=== PATIENT | female | born 1985 | race Caucasian/White ===

== ENCOUNTER → 2018-02-20 11:24 | Outpatient (CLI) | payer OTHER, SELFPAY ==
[2018-02-20 12:45] LABS: Estradiol 147.7 pg/mL
[2018-02-21 09:18] LABS: Progesterone Level 1.63 ng/mL (See Comment)
[2018-02-24 11:09] LABS: HPV Reflexed? NOT INDICATED
== END ==
PROVIDERS: Family Provider Family Medicine; PCP Family Medicine; Visit Provider Obstetrics & Gynecology
DX: Z12.4 Encounter for screening for malignant neoplasm of cervix (principal)
CPT/HCPCS: 36415; 82670; 84144; 88175; G0145

== ENCOUNTER 2020-02-12 11:00 | Day surgery (SDC) | payer OTHER, SELFPAY ==
[2020-02-12] VITALS (11 sets, daily range): BP systolic 102–128; BP diastolic 57–92; PULSE 66–106; RESP 16; TEMP 36.8–37.6; O2SAT 97–100; BMI 21.5
[2020-02-12 11:30] LABS: Internal QC Validated? YES +Cl - CLEAR BKGD; Pregnancy, Urine Negative Negative
[2020-02-12] MEDS: Lactated Ringers 1,000 ML 100 ML IV ×3 (11:32→15:30)
[2020-02-12] MEDS: Cefazolin 1 GM/50 ML BAG IV (12:30)
[2020-02-12] MEDS: Bupivacaine Mpf 0.5% 30 ML VIAL (13:00)
--- NOTE | 2020-02-12 13:28 | PRO.PCM_ITS ---
Procedure Report Date of Procedure: 02/12/20 Preoperative diagnosis: Right ulnar nerve compression, cubital tunnel syndrome Postoperative diagnosis: Same Procedure: Ulnar nerve decompression and stabilize anterior transposition Surgeon: Dr. Jame Ortiz [employer]: Jennifer Rubio NP Anesthesia: General Anesthesiologist: Dr. Funez/ UNRULY Complications: None EBL: 10 cc Special medications: Ancef Indications for surgery patient had pain numbness and tingling in the small and ring finger consistent with cubital tunnel syndrome. Nerve conduction test to verify the diagnosis. Patient did wish to proceed with surgical invention due to failing conservative measures Findings: Patient had compression of the median nerve at the elbow. After releasing the nerve completely there was some anterior translation of the nerve over the medial epicondyle. It was decided to proceed with stabilized anterior transposition. [employer] was utilized throughout the entire procedure. They help with holding of the limb holding of retractors and exposure throughout. They help with nerve protection. They help with stabilized anterior transposition. Wound closure bandage application patient transfer. Without manager surgical surgical time would have been increased, surgical outcome could have been less optimal. Procedure: Patient was taken to the OR. Transferred to the OR table. Appropriate timeouts performed. Appropriate IV antibiotic administered. Involved upper extremity had a well-padded tourniquet applied high on the arm. Upper extremity was prepped padded draped in usual orthopedic sterile fashion for the procedure. Limb was exsanguinated tourniquet applied to 250 mmHg. 10 cm incision was mapped out based between the olecranon and medial epicondyle. We mapped out the medial epicondyle. We mapped out a spot 1-1/2 cm anterior to the medial epicondyle. Skin incision was carried through skin subcutaneous tissue bringing us down over the nerve carefully. [employer]otion[employer] held retractors. Ulnar nerve was decompressed starting at the medial epicondyle extending proximally and distally several centimeters. Once adequate decompression was carried out elbow was flexed and extended. Ulnar nerve seem to be exposed over the medial epicondyle. Was decided to proceed with anterior stabilized transposition. We removed approximately 3 cm of the distal intermuscular septum off the distal humerus after controlling bleeding with the Bovie. We then performed a fascial sleeve based on the forearm musculature over the medial epicondyle 1 and half centimeter wide, 2 cm in length. Nerve had been freed trying to preserve any vascular supply throughout its length. This point the nerve was transposed anterior to the medial epicondyle and stabilized by sewing the fascial sling to the previously mapped out spot with the help of the financial administrative assistant. This was done with 3 sutures of 3-0 Vicryl suture. Once this was done the elbow could be flexed and extended and the nerve was allowed to freely move under its fascial sling. There was no undue tension proximally or distally. No undue angulation proximally or distally. Tourniquet was let down. Bleeding control with the Bovie. Injected 10 cc of half percent bupivacaine plain. This was done in the surrounding soft tissues but not about the nerve. Wound was thoroughly irrigated. No undue bleeding noted. We then repaired the skin with a 2-0 Vicryl inverted followed by a skin prep and Steri-Strips and 4 x 4's ABD Kerlix Arya wrap. Sling if needed. We will plan to see her in the office in 7 to 10 days. Appropriate pain medication prescribed. Patient can move the elbow gently.
[2020-02-12] MEDS: Acetaminophen/Codeine #3 Tablet 1 TABLET PO (15:35)
== END 2020-02-12 17:28 | disposition home or self-care (01) ==
LOC: SDC 11:00 → AC 11:02
PROVIDERS: Anesthesiology; PCP Family Medicine; Referring Provider Orthopaedic Surgery; Visit Provider Orthopaedic Surgery
PROC: (CPT 64718; principal; 2020-02-12 12:15)
DX: G56.21 Lesion of ulnar nerve, right upper limb (principal); Z20.828 Contact with and (suspected) exposure to other viral communicable diseases
CPT/HCPCS: 64718; 81025; 87635; 94799; J7120; J2405; U0003

== ENCOUNTER → 2021-03-21 14:30 | Outpatient (CLI) | payer OTHER, SELFPAY ==
[2021-03-21 16:21] LABS: Hematocrit 38.9 % (37-47); Hemoglobin 13.1 g/dL (12.0-15.0); Mean Corp Hgb Conc 33.7 g/dL (32-36); Mean Corpuscular Hgb 27.4 pg (27.0-32.0); Mean Corpuscular Volume 81.4 fL (81-99); Mean Platelet Vol. 10.1 fl (6.2-12.0); Platelet Count 353 K/mm3 (150-450); RBC Distribution Width CV 12.6 % (11.6-14.6); RBC Distribution Width SD 37.3 fl (35.1-43.9); Red Blood Count 4.78 M/mm3 (4.2-5.4)
[2021-03-21 16:39] LABS: Estradiol 184.1 pg/mL; Luteinizing Hormone 47.9 mIU/mL; T4 Free Direct 1.04 ng/dL (0.76-1.46); Thyroid Stim Hormone (TSH) 0.91 uIU/mL (0.358-3.74)
[2021-03-27 13:12] LABS: Testosterone Free 1.2 pg/mL (0.0-4.2)
== END ==
PROVIDERS: PCP Family Medicine; Visit Provider Obstetrics & Gynecology
DX: N93.9 Abnormal uterine and vaginal bleeding, unspecified (principal)
CPT/HCPCS: 36415; 82627; 82670; 83001; 83002; 84402; 84439; 84443; 85027; 82626